=== PATIENT | male | born 1955 | race Caucasian/White ===

== ENCOUNTER 2020-03-15 07:05 | Outpatient (CLI) | payer MEDICARE, OTHER, SELFPAY ==
--- NOTE | ~2020-03-15 | US_ITS ---
EXAMINATION: US [facility] DATE: 03/15/2020 07:41 INDICATION: Encounter for screening for cardiovascular disorders. TECHNIQUE: Grayscale, color Doppler, and pulsed Doppler images of the aorta and common iliac arteries were obtained. COMPARISON: None. FINDINGS: The aorta is normal in caliber. The right common iliac artery is normal in caliber. The left common i liac artery is normal in caliber. IMPRESSION: 1. No abdominal aortic aneurysm. Reviewed, dictated and finalized at location B. PROGRAMMER ANALYST
--- NOTE | ~2020-03-15 | CT_ITS ---
EXAMINATION:CT lung screening DATE: 03/15/2020 08:06 INDICATION: Personal history of tobacco dependence. Smoker who quit 13 years ago with 30 pack year hi story. TECHNIQUE: Computed tomography (CT) of the chest was performed without intravenous contrast. Automate d exposure control and iterative reconstruction technique were employed. The dose-length product (DLP ) was 161.52 mGy-cm. COMPARISON: None. FINDINGS: There is mild scarring at the lung apices. There is mild emphysema. There is mild atelectas is bilaterally. There is a 3 mm nodule in right upper lobe. No pleural effusion. The heart size is no rmal. There are coronary artery calcifications. No pericardial effusion. There is bilateral gynecomas tia. There is mild thoracic spondylosis. IMPRESSION: 1. Lung-RADS category 2: Benign appearance or behavior. Continue annual screening with noncontrast lo w-dose chest CT in 12 months. Reviewed, dictated and finalized at location B. H MEASURER IMPRESSION: 1. Lung-RADS category 2: Benign appearance or behavior. Continue annual screeni ng with noncontrast low-dose chest CT in 12 months.
== END 2020-03-15 07:06 | disposition home or self-care (01) ==
PROVIDERS: PCP Family Medicine; Visit Provider Family Medicine
DX: Z12.2 Encounter for screening for malignant neoplasm of respiratory organs (principal); Z87.891 Personal history of nicotine dependence; Z13.6 Encounter for screening for cardiovascular disorders
CPT/HCPCS: 76706; G0297